=== PATIENT | female | born 1990 | race Caucasian/White ===

== ENCOUNTER 2016-05-03 18:50 | Emergency (ER) | payer OTHER ==
[~2016-05-03] VITALS: Ht 160 cm; Wt 117.9 kg
[~2016-05-03 18:50] MED LIST: AMOXICILLIN500 MG PO; CIPRO500 MG PO; FLEXERIL10 MG PO; FLONASE0.05 MG/AC NS; KEFLEX500 M1 PO; Motrin,Rufen800 MG PO; NAPROSYN500 MG PO; PHENERGAN W/DM120 ML PO; PREDNICOT10 MG PO; PYRIDIUM100 MG PO; TESSALON PERLE100 M1 PO; TOBREX OPHTH S2.5 ML OPH; Zofran4 MG PO
[2016-05-03 21:43] LABS: BILIRUBIN NEGATIVE (NEGATIVE); BLOOD NEGATIVE (NEGATIVE); CLARITY CLEAR (CLEAR); COLOR YELLOW (YELLOW); GLUCOSE NEGATIVE (NEGATIVE); KETONE NEGATIVE (NEGATIVE); LEUKO ESTERASE NEGATIVE (NEGATIVE); NITRITE NEGATIVE (NEGATIVE); PH 6.5 (5.0-9.0); PROTEIN NEGATIVE (NEGATIVE); UROBILINOGEN 0.2 E.U./dl (0.2-1.0)
[2016-05-03 21:51] LABS: BACTERIA 1+; EPITHELIAL CELLS 35-40; URINE REFLEX COMMENT NO (NO)
[2016-05-03] MEDS ORDERED: ZITHROMAX250 MG PO (22:23)
[2016-05-03] MEDS ORDERED: MEDROL DOSEPAK4 MG PO (22:23)
== END 2016-05-03 22:12 | disposition home or self-care (01) ==
LOC: ED 18:50
PROVIDERS: Physician Assistant
DX: B34.9 Viral infection, unspecified (principal)

== ENCOUNTER 2016-05-06 01:42 | Emergency (ER) | payer OTHER ==
[~2016-05-06] VITALS: Ht 160 cm; Wt 117.9 kg
[~2016-05-06 01:42] MED LIST changes: +MEDROL DOSEPAK4 MG PO; +ZITHROMAX250 MG PO
[2016-05-06] MEDS ORDERED: PROAIR HFA8.5 GM INH (02:24)
[2016-05-06] MEDS ORDERED: ULTRAM50 MG PO (02:24)
== END 2016-05-06 03:39 | disposition home or self-care (01) ==
LOC: ED 01:42
DX: J20.9 Acute bronchitis, unspecified (principal); J02.9 Acute pharyngitis, unspecified

== ENCOUNTER 2016-07-05 21:11 | Emergency (ER) | payer OTHER ==
[~2016-07-05] VITALS: Ht 162.5 cm; Wt 117.9 kg
[~2016-07-05 21:11] MED LIST changes: +PROAIR HFA8.5 GM INH; +ULTRAM50 MG PO
[2016-07-05] MEDS ORDERED: KEFLEX500 M1 PO (22:06)
[2016-07-05] MEDS ORDERED: ULTRAM50 MG PO (22:06)
== END 2016-07-05 22:06 | disposition home or self-care (01) ==
LOC: ED 21:11
DX: J02.9 Acute pharyngitis, unspecified (principal)

== ENCOUNTER 2017-01-18 20:37 | Emergency (ER) | payer OTHER ==
[~2017-01-18] VITALS: Ht 172.7 cm; Wt 113.4 kg
[2017-01-18 22:21] LABS: BASO # 0.1 10*3/uL (0.0-0.1); BASO % 0.4 % (0.0-1.0); EOS # 0.1 10*3/uL (0.0-0.4); EOS % 0.8 % (1.0-4.0); HEMATOCRIT 41.8 % (37.0-47.0); HEMOGLOBIN 13.6 g/dl (12.0-16.0); LYMPH # 1.1 10*3/uL (1.3-4.4); LYMPH % 9.5 % (27.0-41.0); MEAN CELL VOLUME 83.9 fl (81.0-99.0); MEAN CORPUSCULAR HGB 27.3 pg (27.0-31.0); MEAN CORPUSCULAR HGB CONC 32.5 g/dl (33.0-37.0); MEAN PLATELET VOLUME 10.8 fl (9.6-12.3); MONO # 0.5 10*3/uL (0.1-1.0); MONO % 4.1 % (3.0-9.0); NEUT # 9.5 10*3/uL (2.3-7.9); NEUT % 84.9 % (47.0-73.0); PLATELET COUNT AUTOMATED 300 10*3/uL (130-400); RED BLOOD COUNT 4.98 10*6/uL (4.10-5.10); RED CELL DISTRI WIDTH 12.9 % (0-14.5); WHITE BLOOD COUNT 11.2 10*3/uL (4.8-10.8)
[2017-01-18 22:38] LABS: ALBUMIN 3.4 gm/dl (3.1-4.5); ALKALINE PHOSPHATASE 26 U/L (45-117); BUN 13 mg/dl (7-24); CHLORIDE 105 mmol/L (98-107); CREATININE 0.87 mg/dL (0.55-1.02); POTASSIUM 4.2 mmol/L (3.5-5.1); SGOT/AST 12 IU/L (3-35); SGPT/ALT 20 U/L (12-78); SODIUM 138 mmol/L (136-145); TOTAL PROTEIN 7.7 gm/dL (6.4-8.2)
[2017-01-18 22:51] LABS: BILIRUBIN NEGATIVE (NEGATIVE); BLOOD 2+ (NEGATIVE); CLARITY SL CLOUDY (CLEAR); COLOR YELLOW (YELLOW); GLUCOSE NEGATIVE (NEGATIVE); KETONE TRACE (NEGATIVE); LEUKO ESTERASE 1+ (NEGATIVE); NITRITE NEGATIVE (NEGATIVE); PH 6.5 (5.0-9.0); UROBILINOGEN 0.2 E.U./dl (0.2-1.0)
[2017-01-18 22:58] LABS: BACTERIA 1+; EPITHELIAL CELLS TNTC; RBC 16-20 rbc/hpf (0-2)
[2017-01-18] MEDS ORDERED: ZOFRAN4 MG PO (23:21)
[2017-01-18] MEDS ORDERED: MACROBID100 M1 PO (23:21)
== END 2017-01-19 00:31 | disposition home or self-care (01) ==
LOC: ED 20:37
PROVIDERS: Nurse Practitioner
DX: N39.0 Urinary tract infection, site not specified (principal); K29.70 Gastritis, unspecified, without bleeding; R11.2 Nausea with vomiting, unspecified; F17.200 Nicotine dependence, unspecified, uncomplicated

== ENCOUNTER 2017-11-03 17:09 | Emergency (ER) | payer OTHER ==
[~2017-11-03] VITALS: Wt 117.9 kg
[~2017-11-03 17:09] MED LIST changes: +MACROBID100 M1 PO; +ZOFRAN4 MG PO
[2017-11-03] MEDS ORDERED: AMOXICILLIN500 M3 PO (19:00)
== END 2017-11-03 19:42 | disposition home or self-care (01) ==
LOC: ED 17:09
DX: J02.9 Acute pharyngitis, unspecified (principal); R50.9 Fever, unspecified; R11.2 Nausea with vomiting, unspecified

== ENCOUNTER 2018-01-30 10:21 | Emergency (ER) | payer OTHER ==
[~2018-01-30] VITALS: Ht 165.1 cm; Wt 117.9 kg
[~2018-01-30 10:21] MED LIST changes: +AMOXICILLIN500 M3 PO
[2018-01-30] MEDS ORDERED: FLONASE ALLERG9.9 ML NAS (10:57)
[2018-01-30] MEDS ORDERED: ZITHROMAX250 MG PO (10:57)
[2018-01-30] MEDS ORDERED: ZYRTEC10 MG PO (10:57)
[2018-01-30] MEDS ORDERED: ROBITUSSIN DM 105 ML PO (12:05)
== END 2018-01-30 14:00 | disposition home or self-care (01) ==
LOC: ED 10:21
DX: J01.90 Acute sinusitis, unspecified (principal); J04.0 Acute laryngitis

== ENCOUNTER 2018-05-18 17:40 | Emergency (ER) | payer BC, OTHER ==
[~2018-05-18] VITALS: Ht 162.5 cm; Wt 117.9 kg
[~2018-05-18 17:40] MED LIST changes: +FLONASE ALLERG9.9 ML NAS; +ROBITUSSIN DM 105 ML PO; +ZYRTEC10 MG PO
[2018-05-18] MEDS ORDERED: MEDROL DOSEPAK4 MG PO (19:32)
[2018-05-18] MEDS ORDERED: CYCLOBENZAPRINE5 M3 PO (19:32)
[2018-05-18] MEDS ORDERED: Motrin,Rufen800 MG PO (19:32)
[2018-05-25] MEDS ORDERED: PREDNISONE50 MG PO (09:03)
[2018-05-25] MEDS ORDERED: ZOFRAN4 MG PO (09:03)
== END 2018-05-18 19:36 | disposition home or self-care (01) ==
LOC: ED 17:40
DX: M54.41 Lumbago with sciatica, right side (principal)

== ENCOUNTER → 2018-08-07 | Outpatient (CLI) | payer BC, OTHER ==
[~2018-08-07] MED LIST changes: +CYCLOBENZAPRINE5 M3 PO; +PREDNISONE50 MG PO
== END | disposition home or self-care (01) ==
LOC: LAB 08:08
DX: N91.2 Amenorrhea, unspecified (principal)

== ENCOUNTER 2019-04-20 17:47 | Emergency (ER) | payer BC ==
[~2019-04-20] VITALS: Ht 162.5 cm; Wt 122.5 kg
== END 2019-04-20 20:45 | disposition home or self-care (01) ==
LOC: ED 17:47
DX: S46.912A Strain of unspecified muscle, fascia and tendon at shoulder and upper arm level, left arm, initial encounter (principal); M54.2 Cervicalgia; X58.XXXA Exposure to other specified factors, initial encounter; Y93.89 Activity, other specified; Y92.89 Other specified places as the place of occurrence of the external cause; Y99.8 Other external cause status

== ENCOUNTER 2019-04-28 11:31 | Emergency (ER) | payer BC ==
[~2019-04-28] VITALS: Ht 160 cm; Wt 122.5 kg
[2019-04-28] MEDS ORDERED: Motrin,Rufen800 MG PO (13:03)
[2019-04-28] MEDS ORDERED: CYCLOBENZAPRINE5 M3 PO (13:20)
== END 2019-04-28 13:30 | disposition home or self-care (01) ==
LOC: ED 11:31
DX: S46.912A Strain of unspecified muscle, fascia and tendon at shoulder and upper arm level, left arm, initial encounter (principal); M54.12 Radiculopathy, cervical region; Z79.899 Other long term (current) drug therapy; X58.XXXA Exposure to other specified factors, initial encounter; Y93.89 Activity, other specified; Y92.89 Other specified places as the place of occurrence of the external cause; Y99.8 Other external cause status

== ENCOUNTER 2019-06-05 16:27 | Emergency (ER) | payer BC, MEDICAID ==
[~2019-06-05] VITALS: Wt 127.5 kg
[2019-06-05 17:28] LABS: BILIRUBIN NEGATIVE (NEGATIVE); BLOOD 3+ (NEGATIVE); CLARITY CLOUDY (CLEAR); COLOR YELLOW (YELLOW); GLUCOSE NEGATIVE (NEGATIVE); KETONE NEGATIVE (NEGATIVE); LEUKO ESTERASE NEGATIVE (NEGATIVE); NITRITE NEGATIVE (NEGATIVE); UROBILINOGEN 0.2 E.U./dl (0.2-1.0)
[2019-06-05 17:31] LABS: RBC TNTC rbc/hpf (0-2)
[2019-06-05 17:32] LABS: BACTERIA TRACE
[2019-06-14] MEDS ORDERED: ZOFRAN4 MG PO (21:16)
== END 2019-06-05 20:05 | disposition home or self-care (01) ==
LOC: ED 16:27
PROVIDERS: Physician Assistant
DX: O20.9 Hemorrhage in early pregnancy, unspecified (principal); Z79.899 Other long term (current) drug therapy; Z79.2 Long term (current) use of antibiotics; Z3A.08 8 weeks gestation of pregnancy

== ENCOUNTER 2019-06-13 22:58 | Emergency (ER) | payer BC, MEDICAID ==
[~2019-06-13] VITALS: Ht 162.5 cm; Wt 127.5 kg
[2019-06-14] MEDS ORDERED: ZOFRAN4 MG PO (21:16)
== END 2019-06-13 23:57 | disposition home or self-care (01) ==
LOC: ED 22:58
DX: O03.9 Complete or unspecified spontaneous abortion without complication (principal); Z79.899 Other long term (current) drug therapy

== ENCOUNTER → 2019-06-14 | Emergency (ER) | payer BC, MEDICAID ==
[~2019-06-14] VITALS: Ht 162.5 cm; Wt 127.5 kg
== END ==
LOC: ED 20:32
DX: O03.9 Complete or unspecified spontaneous abortion without complication (principal); R42 Dizziness and giddiness; R11.0 Nausea; Z79.899 Other long term (current) drug therapy

== ENCOUNTER 2019-08-31 14:45 | Emergency (ER) | payer OTHER ==
[~2019-08-31] VITALS: Ht 162.5 cm; Wt 128.8 kg
[2019-08-31 16:13] LABS: BASO % 0.2 % (0.0-1.0); EOS # 0.1 10*3/uL (0.0-0.4); EOS % 0.8 % (1.0-4.0); HEMATOCRIT 39.2 % (37.0-47.0); LYMPH # 1.9 10*3/uL (1.3-4.4); LYMPH % 13.3 % (27.0-41.0); MEAN CELL VOLUME 83.8 fl (81.0-99.0); MEAN CORPUSCULAR HGB 27.1 pg (27.0-31.0); MEAN CORPUSCULAR HGB CONC 32.4 g/dl (33.0-37.0); MEAN PLATELET VOLUME 11.5 fl (9.6-12.3); MONO # 0.7 10*3/uL (0.1-1.0); MONO % 4.6 % (3.0-9.0); NEUT # 11.4 10*3/uL (2.3-7.9); NEUT % 80.5 % (47.0-73.0); PLATELET COUNT AUTOMATED 270 10*3/uL (130-400); RED BLOOD COUNT 4.68 10*6/uL (4.10-5.10); RED CELL DISTRI WIDTH 13.2 % (0-14.5); WHITE BLOOD COUNT 14.1 10*3/uL (4.8-10.8)
[2019-08-31 16:29] LABS: ALBUMIN 2.9 gm/dl (3.1-4.5); ALKALINE PHOSPHATASE 27 U/L (45-117); BUN 4 mg/dl (7-24); CHLORIDE 108 mmol/L (98-107); CREATININE 0.59 mg/dL (0.55-1.02); POTASSIUM 3.8 mmol/L (3.5-5.1); SGOT/AST 16 IU/L (3-35); SGPT/ALT 33 U/L (12-78); SODIUM 138 mmol/L (136-145); TOTAL PROTEIN 7.5 gm/dL (6.4-8.2)
== END 2019-08-31 17:45 | disposition home or self-care (01) ==
LOC: ED 14:45
PROVIDERS: Physician Assistant
DX: B34.9 Viral infection, unspecified (principal); Z79.899 Other long term (current) drug therapy

== ENCOUNTER 2019-09-15 09:02 | Emergency (ER) | payer OTHER ==
[~2019-09-15] VITALS: Ht 162.5 cm; Wt 126.6 kg
== END 2019-09-15 11:44 | disposition home or self-care (01) ==
LOC: ED 09:02
DX: E86.0 Dehydration (principal)

== ENCOUNTER 2019-12-06 16:41 | Emergency (ER) | payer OTHER ==
[~2019-12-06] VITALS: Ht 162.5 cm; Wt 130.6 kg
== END 2019-12-06 19:41 | disposition home or self-care (01) ==
LOC: ED 16:41
DX: O23.43 Unspecified infection of urinary tract in pregnancy, third trimester (principal); O26.893 Other specified pregnancy related conditions, third trimester; E86.0 Dehydration; Z79.899 Other long term (current) drug therapy; Z3A.35 35 weeks gestation of pregnancy

== ENCOUNTER 2019-12-18 18:33 | Emergency (ER) | payer OTHER ==
[~2019-12-18] VITALS: Ht 162.5 cm; Wt 133.8 kg
[~2019-12-18 18:33] MED LIST changes: +CEPHALEXIN500 M1 PO
[2019-12-18] MEDS ORDERED: CLARITIN10 MG PO ×2 (20:20)
== END 2019-12-18 20:20 | disposition home or self-care (01) ==
LOC: ED 18:33
DX: J06.9 Acute upper respiratory infection, unspecified (principal); J02.8 Acute pharyngitis due to other specified organisms

== ENCOUNTER 2020-01-08 19:39 | Emergency (ER) | payer OTHER ==
[~2020-01-08] VITALS: Ht 162.5 cm; Wt 131.5 kg
[~2020-01-08 19:39] MED LIST changes: +CLARITIN10 MG PO
[2020-01-08] MEDS ORDERED: CEPHALEXIN500 M1 PO ×2 (21:55)
== END 2020-01-08 22:30 | disposition home or self-care (01) ==
LOC: ED 19:39
DX: L53.9 Erythematous condition, unspecified (principal)

== ENCOUNTER 2020-01-09 12:19 | Emergency (ER) | payer OTHER ==
[~2020-01-09] VITALS: Ht 162.5 cm; Wt 131.5 kg
[2020-01-09 13:05] LABS: BASO # 0.1 10*3/uL (0.0-0.1); BASO % 0.5 % (0.0-1.0); EOS # 0.3 10*3/uL (0.0-0.4); EOS % 3.5 % (1.0-4.0); HEMATOCRIT 40.2 % (37.0-47.0); LYMPH # 1.8 10*3/uL (1.3-4.4); LYMPH % 18.1 % (27.0-41.0); MEAN CELL VOLUME 83.9 fl (81.0-99.0); MEAN CORPUSCULAR HGB 25.7 pg (27.0-31.0); MEAN CORPUSCULAR HGB CONC 30.6 g/dl (33.0-37.0); MEAN PLATELET VOLUME 10.5 fl (9.6-12.3); MONO # 0.5 10*3/uL (0.1-1.0); MONO % 4.9 % (3.0-9.0); NEUT % 72.4 % (47.0-73.0); PLATELET COUNT AUTOMATED 319 10*3/uL (130-400); RED BLOOD COUNT 4.79 10*6/uL (4.10-5.10); RED CELL DISTRI WIDTH 14.7 % (0-14.5); WHITE BLOOD COUNT 9.7 10*3/uL (4.8-10.8)
[2020-01-09 13:16] LABS: ACT PARTIAL THROMBO TIME 24.2 SECONDS (20.0-32.1); INTERNATIONAL NORM RATIO 0.9 (2.0-3.5)
[2020-01-09 13:21] LABS: ALBUMIN 2.7 gm/dl (3.1-4.5); ALKALINE PHOSPHATASE 51 U/L (45-117); BUN 6 mg/dl (7-24); CHLORIDE 108 mmol/L (98-107); CREATININE 0.69 mg/dL (0.55-1.02); POTASSIUM 4.1 mmol/L (3.5-5.1); SGOT/AST 16 IU/L (3-35); SGPT/ALT 22 U/L (12-78); SODIUM 140 mmol/L (136-145); TOTAL PROTEIN 6.8 gm/dL (6.4-8.2); TROPONIN I < 0.015 ng/ml (<0.045)
== END 2020-01-09 16:46 | disposition home or self-care (01) ==
LOC: ED 12:19
PROVIDERS: Family Medicine
DX: R00.2 Palpitations (principal); Z79.899 Other long term (current) drug therapy

== ENCOUNTER → 2020-01-18 | Outpatient (CLI) | payer OTHER | END | disposition home or self-care (01) | LOC: COVID19 16:10 | PROVIDERS: ATTEND Internal Medicine | DX: U07.1 COVID-19 (principal) ==

== ENCOUNTER 2020-01-22 18:22 | Emergency (ER) | payer OTHER ==
[~2020-01-22] VITALS: Ht 162.5 cm; Wt 124.7 kg
[2020-01-22] MEDS ORDERED: NAPROSYN500 MG PO (21:36)
== END 2020-01-22 22:03 | disposition home or self-care (01) ==
LOC: ED 18:22
DX: O87.0 Superficial thrombophlebitis in the puerperium (principal); I80.8 Phlebitis and thrombophlebitis of other sites; Z79.899 Other long term (current) drug therapy

== ENCOUNTER → 2020-05-13 | Outpatient (CLI) | payer OTHER | END | disposition home or self-care (01) | LOC: CARD 08:56 | PROVIDERS: ATTEND Internal Medicine Cardiovascular Disease | DX: R00.2 Palpitations (principal) ==

== ENCOUNTER → 2021-02-13 | Outpatient (CLI) | payer OTHER | END | disposition home or self-care (01) | LOC: COVID19 15:12 | PROVIDERS: ATTEND Internal Medicine | DX: Z11.52 Encounter for screening for COVID-19 (principal) ==

== ENCOUNTER → 2021-05-22 | Outpatient (CLI) | payer OTHER | END | disposition home or self-care (01) | LOC: US 14:38 | PROVIDERS: ATTEND Nurse Practitioner Women's Health | DX: R10.2 Pelvic and perineal pain (principal); Z87.42 Personal history of other diseases of the female genital tract ==

== ENCOUNTER 2022-01-09 10:01 | Emergency (ER) | payer OTHER ==
[~2022-01-09] VITALS: Ht 160 cm
[2022-01-09] MEDS ORDERED: TAMIFLU 75MG CA75 MG PO (11:29)
== END 2022-01-09 11:39 | disposition home or self-care (01) ==
LOC: ED 10:01
DX: B34.9 Viral infection, unspecified (principal); Z20.822 Contact with and (suspected) exposure to COVID-19

== ENCOUNTER 2022-05-03 14:31 | Emergency (ER) | payer OTHER ==
[~2022-05-03] VITALS: Ht 160 cm; Wt 136.1 kg
[~2022-05-03 14:31] MED LIST changes: +TAMIFLU 75MG CA75 MG PO
[2022-05-03] MEDS ORDERED: PREDNISONE50 MG PO (16:02)
[2022-05-03] MEDS ORDERED: AMOX-CLAV 875-1 EACH PO (16:02)
== END 2022-05-03 16:52 | disposition home or self-care (01) ==
LOC: ED 14:31
DX: J01.90 Acute sinusitis, unspecified (principal)

== ENCOUNTER 2022-05-19 10:38 | Emergency (ER) | payer OTHER ==
[~2022-05-19] VITALS: Ht 160 cm; Wt 136.1 kg
[~2022-05-19 10:38] MED LIST changes: +AMOX-CLAV 875-1 EACH PO
[2022-05-19] MEDS ORDERED: Ondansetron4 MG PO (11:02)
== END 2022-05-19 11:18 | disposition home or self-care (01) ==
LOC: ED 10:38
DX: R11.2 Nausea with vomiting, unspecified (principal); R19.7 Diarrhea, unspecified

== ENCOUNTER → 2023-03-02 | Outpatient (CLI) | payer OTHER ==
[~2023-03-02] MED LIST changes: +Ondansetron4 MG PO
== END | disposition home or self-care (01) ==
LOC: US 08:30
PROVIDERS: ATTEND Physician Assistant
DX: N85.8 Other specified noninflammatory disorders of uterus (principal); R10.2 Pelvic and perineal pain

== ENCOUNTER 2023-11-23 16:43 | Emergency (ER) | payer OTHER ==
[~2023-11-23] VITALS: Ht 162.5 cm; Wt 135.2 kg
[2023-11-23] MEDS ORDERED: AMOX-CLAV 875-1 EACH PO (18:23)
== END 2023-11-23 18:41 | disposition home or self-care (01) ==
LOC: ED 16:43
DX: J32.9 Chronic sinusitis, unspecified (principal); Z20.822 Contact with and (suspected) exposure to COVID-19; F17.290 Nicotine dependence, other tobacco product, uncomplicated

== ENCOUNTER → 2024-11-01 | Outpatient (CLI) | payer OTHER | END | disposition home or self-care (01) | LOC: MAMMO 08:39 | PROVIDERS: ATTEND Physician Assistant | DX: N63.21 Unspecified lump in the left breast, upper outer quadrant (principal); R92.313 Mammographic fatty tissue density, bilateral breasts ==